=== PATIENT | male | born 1980 | race African-American/Black ===

== ENCOUNTER → 2021-01-19 03:31 | Outpatient (CLI) | payer OTHER, SELFPAY ==
[2021-01-19 19:14] LABS: SARS-CoV-2 RNA PCR Negative
== END ==
PROVIDERS: PCP Nurse Practitioner Family; Visit Provider Nurse Practitioner Adult Health
DX: Z20.822 Contact with and (suspected) exposure to COVID-19 (principal)
CPT/HCPCS: C9803; U0003; U0005

== ENCOUNTER → 2021-07-05 03:14 | Outpatient (CLI) | payer OTHER, SELFPAY ==
[2021-07-05 11:05] LABS: SARS-CoV-2 RNA PCR Negative
== END ==
PROVIDERS: PCP Nurse Practitioner Family; Visit Provider Nurse Practitioner Family
DX: Z71.84 Encounter for health counseling related to travel (principal); Z20.822 Contact with and (suspected) exposure to COVID-19
CPT/HCPCS: C9803; U0003; U0005

== ENCOUNTER 2022-02-16 09:02 | Emergency (ER) | payer OTHER, SELFPAY ==
--- NOTE | ~2022-02-16 | XR_ITS ---
EXAMINATION: XR hand RT min 3V DATE: 02/16/2022 09:20 INDICATION: Right hand injury and swelling. TECHNIQUE: 3 views of right hand were obtained. COMPARISON: None. FINDINGS: Bone alignment is normal. No acute fracture. There is an old healed fracture of fifth metac arpal. Joint spaces are normal. IMPRESSION: 1. No acute fracture. Reviewed, dictated and finalized at location A. IMPRESSION: 1. No acute fracture.
[2022-02-16 09:12] VITALS: BP 164/94; PULSE 65; RESP 16; TEMP 36.3; O2SAT 100
--- NOTE | 2022-02-16 09:28 | ED.UPPEXIN ---
HPI - Extremity Injury (Upper) General Chief Complaint: Extremity Injury, Upper Stated Complaint: right hand pain Time Seen by Provider: 02/16/22 09:13 Source: patient Mode of arrival: ambulatory Limitations: no limitations History of Present Illness HPI narrative: patient presents today complaining of right Hand injury. Patient was drilling a lug nut from a tire and injured his hand. complaining of pain primarily to the 4th finger and metacarpal area M. Injury occurred yesterday. Reports some mild tingling to the 4th finger as well. Currently rates his pain 5/10 has tried no [id number] treatment prior to arrival. Related Data Allergies Allergy/AdvReac Type Severity Reaction Status Date / Time No Known Allergies Allergy Unverified 01/19/16 15:08 Review of Systems Review of Systems: CONSTITUTIONAL: Denies body aches, fever, chills, or sweats. EYES: Denies visual changes, redness, or discharge. ENT: Denies rhinorrhea, congestion, sore throat, or otalgia. CARDIOVASCULAR: Denies chest pain, palpitations, or edema. RESPIRATORY: Denies cough or dyspnea. GASTROINTESTINAL: Denies abdominal pain, nausea, vomiting, or diarrhea. GENITOURINARY: Denies dysuria or hematuria. SKIN: Denies rash, itching, or wounds. MUSCULOSKELETAL: + Right hand injury NEUROLOGIC: Denies headache, numbness, or weakness.+ right hand tingling PSYCH: Denies depression or anxiety. PMFSH Comments At time of signature, I have reviewed and agree with nursing past medical, surgical, social and family history unless otherwise noted. Please see nursing chart for further information. There is no relevant family history pertinent to the presenting complaint Exam Narrative: GENERAL: Well-appearing, well-nourished, and in no acute distress. HEAD: Normocephalic, atraumatic. EYES: EOMI. No redness or drainage. Conjunctivae normal. ENT: Mucous membranes pink and moist. NECK: Normal AROM. CHEST: No respiratory distress. EXTREMITIES: Right hand: Tenderness over the 4th metacarpal. Small bruise to the distal 4th metacarpal on the palmar aspect. Mild edema to the same area. Mild tenderness to the 4th finger. Distal sensation intact. Capillary refill normal. Radial pulse normal. No other tenderness to the rest of the hand or fingers. Patient has full range of motion of all fingers and wrist. SKIN: Warm, dry, no rash. Capillary refill normal. Normal skin turgor. NEURO: No focal deficits. Alert and oriented x3. Gait steady. PSYCH: Normal affect. No signs of depression or anxiety. Course Course Level of Care: Express Care Visit Vital Signs Vital signs: Vital Signs Temperature 97.3 F L 02/16/22 09:12 Pulse Rate 65 02/16/22 09:12 Respiratory Rate 16 02/16/22 09:12 Blood Pressure 164/94 H 02/16/22 09:12 Pulse Oximetry 100 02/16/22 09:12 Oxygen Delivery Room Air 02/16/22 09:12 Temperature 97.3 F L 02/16/22 09:12 Pulse Rate 65 02/16/22 09:12 Respiratory Rate 16 02/16/22 09:12 Blood Pressure 164/94 H 02/16/22 09:12 Pulse Oximetry 100 02/16/22 09:12 Oxygen Delivery Room Air 02/16/22 09:12 Reviewed. Pt has been instructed to follow up with his PCP regarding his elevated blood pressure today. MDM - Extremity Injury (Upper) Differential Diagnosis Differential diagnosis: Likely other ( Hand fracture, finger fracture, hand sprain, hand contusion) Imaging Data Radiologist's impression: ITS Impressions Hand X-Ray 02/16/22 09:28 IMPRESSION: 1. No acute fracture. Critical Care Time Critical Care Time Critical Care Time: No Discharge Plan Discharge Clinical Impression: Contusion of hand, right Patient Disposition: Home, Self-Care Condition: Stable Instructions: Contusion in Adults (ED) Additional Instructions: Your x-ray is negative for fracture today. Apply ice and elevate your hand. Take an anti-inflammatory such as Aleve or ibuprofen for pain and infla
== END 2022-02-16 09:37 | disposition home or self-care (01) ==
PROVIDERS: Emergency Provider Nurse Practitioner
DX: S60.221A Contusion of right hand, initial encounter (principal); T14.90XA Injury, unspecified, initial encounter
CPT/HCPCS: 73130; 99203; G0463